=== PATIENT | male | born 1970 | race African-American/Black ===

== ENCOUNTER 2018-11-05 17:39 | Inpatient (IN) | payer OTHER ==
--- OUTSIDE RECORDS SUMMARY | 2018-11-05 17:42 | XMS REPORT | Continuity of Care Document ---
:1970 Author Organization Interface Problems Problem Status Onset Classification Date Comments Source Date Reported ALTERED MENTAL Active [facility]20 [facility] [address] [place] UNSPECIFIED, VOMI VOMITING Active 03/27/20 [facility] [place] Anxiety Resolved Problem 04/01/2017 [facility] Bipolar 1 disorder Resolved Problem 04/01/2017 [facility] Epilepsy Resolved Problem 04/01/2017 [facility] GERD (<span Resolved Problem 04/01/2017 ID="[id number]"> [place] Confirmed</span>) Mental retardation Resolved Problem 04/01/2017 [facility] Schizoaffective Resolved Problem 04/01/2017 disorder [place] Seizures Resolved Problem 04/01/2017 [facility] Thyroiditis Resolved Problem 04/01/2017 [facility] ALTERED MENTAL Active [facility], [place] UNSPECIFIED VOMITING, Active [facility] UNSPECIFIED [place] Medications Medication Details Route Status Patient Ordering Order Source Instructions Provider Date Famotidine 10 MG 10 mg, 0.5 No Longer Oral Tablet tab, Route: Active 2016 [place] PO, Drug form: TAB, Daily, Dosing Weight 81.864, kg, Start date: 03/30/17 9:00:00 CDT, Duration: 30 day, Stop date: 04/28/17 9:00:00 CDTNotes: (Same as: Pepcid) Thyroxine 75 microgram, No Longer 1 tab, Route: Active 2016 [place] PO, Drug form: TAB, Before Breakfast, Dosing Weight 81.864, kg, Start date: 03/30/17 7:30:00 CDT, Duration: 30 day, Stop date: 04/28/17 7:30:00 CDTNotes: Take 1 hour before or 2 hours after meal; Enteral feeds may interefere with the absorption of this medication. (Same as:Synthroid, Levothroid) Divalproex Sodium 1,000 mg, 2 Inactive 250 MG Enteric tab, Route: 2017 [place] Coated Tablet PO, Drug form: [Depakote] ECTAB, Bedtime, Dosing Weight 81.864, kg, Start date: 03/29/17 21:00:00 CDT, Duration: 30 day, Stop date: 04/27/17 21:00:00 CDTNotes: (Same as: Depakote Delayed Release) Do not confuse with the extended-relea se tablet. Delayed absorption enteric coated tablet. Do not crush Clonazepam 4 mg, 4 tab, Inactive Route: PO, 2016 [place] Drug form: TAB, Bedtime, Dosing Weight 81.864, kg, Start date: 03/29/17 21:00:00 CDT, Duration: 30 day, Stop date: 04/27/17 21:00:00 CDTNotes: (Same As: KlonoPIN) gabapentin 100 MG 200 mg, 2 cap, Inactive Oral Capsule Route: PO, 2016 [place] Drug form: CAP, Bedtime, Dosing Weight 81.864, kg, Start date: 03/29/17 21:00:00 CDT, Duration: 30 day, Stop date: 04/27/17 21:00:00 CDTNotes: (Same as: Neurontin) Divalproex Sodium 750 mg, 3 tab, Inactive 250 MG Enteric Route: PO, 2016 [place] Coated Tablet Drug form: [Depakote] ECTAB, BID, Dosing Weight 81.864, kg, Start date: 03/29/17 17:00:00 CDT, Duration: 30 day, Stop date: 04/28/17 9:00:00 CDTNotes: (Same as: Depakote Delayed Release) Do not confuse with the extended-relea se tablet. Delayed absorption, enteric coated tablet. Do not crush Magnesium Oxide 400 mg, 1 tab, Inactive Route: PO, 2016 [place] Drug form: TAB, BID, Dosing Weight 81.864, kg, Start date: 03/29/17 17:00:00 CDT, Duration: 30 day, Stop date: 04/28/17 9:00:00 CDTNotes: (Same as: Mag-Ox 400) Magnesium oxide [id number] elemental magnesium Dose=____mg magnesium oxide (___mg elemental magnesium) Clonazepam 2 mg, 2 tab, Inactive Route: PO2016 [place] Drug form: TAB, TID, Dosing Weight 81.864, kg, Start date: 03/29/17 13:00:00 CDT, Duration: 30 day, Stop date: 04/28/17 9:00:00 CDTNotes: (Same As: KlonoPIN) Metronidazole 500 500 mg=1 tab, Active MG Oral Tablet PO, Q8H, X 5 2016 day, # 15 tab, 0 Refill(s) clonazePAM 2 mg 4 mg, PO, Active oral tablet Bedtime, 0 2016 [place] Refill(s) Ciprofloxacin 500 500 mg=1 tab, Active MG Oral Tablet PO, Q12H, X 5 2016 [place] [Cipro] , # 10 tab, 0 Refill(s) Bisacodyl 5 mg, 1 tab, Inactive Route: PO, 2016 [place] Drug form: ECTAB, Daily, Dosing Weight 81.864, kg, PRN Constipation, Start date: 03/29/17 10:47:00 CDT, Duration: 30 day, Stop date: 04/28/17 10:46:00 CDTNotes: (Same As: Dulcolax, Correctol) (Do Not Crush) "Do Not Crush" potassium chloride 40 mEq, 2 tab, Inactive Route: PO2016 [place] Drug form: ERTAB, ONCE, Dosing Weight 81.864, kg, Start date: 03/29/17 7:52:00 CDT, Stop date: 03/29/17 7:52:00 CDTNotes: (Same as: K-Dur 20) "Do Not Crush" With food and full glass of water zolpidem 5 mg, 1 tab, No Longer Route: PO, Active 2016 [place] Drug form: TAB, Bedtime, PRN Sleep, Start date: 03/28/17 21:23:00 CDT, Duration: 30 day, Stop date: 04/27/17 21:22:00 CDTNotes: (Same As: Ambien) gabapentin 100 MG 200 mg, 2 cap, No Longer Oral Capsule Route: PO, Active 2016 [place] Drug form: CAP, Bedtime, Dosing Weight 96.364, kg, Start date: 03/28/17 21:00:00 CDT, Duration: 30 day, Stop date: 04/26/17 21:00:00 CDTNotes: (Same as: Neurontin) Geodon 10 mg, Route: No Longer IM, Drug form: Active 2016 [place] PDR/INJ, Q2H, Dosing Weight 81.864, kg, PRN Agitation, Start date: 03/28/17 19:08:00 CDT, Duration: 30 day, Stop date: 04/27/17 19:07:00 CDTNotes: Reconstitute with 1.2 ml of sterile water. Final concentration= 20 mg/1ml. Maximum 40 mg/24 hours (Same As: Geodon). MEDICATION WASTE Product Size: 20 mg Product Wasted: ___ mg Loperamide 2 mg, 1 cap, No Longer Route: PO, Active 2016 [place] Drug form: CAP, Q6H, Dosing Weight 81.864, kg, PRN Diarrhea, Start date: 03/28/17 17:56:00 CDT, Duration: 30 day, Stop date: 04/27/17 17:55:00 CDTNotes: (Same as: Imodium) MAX adult dose is 8 caps/day Benadryl 25 mg, 0.5 mL, Inactive Route: IVP, 2016 [place] Drug form: INJ, ONCE, Dosing Weight 81.864, kg, PRN Allergic reaction, Start date: 03/28/17 17:50:00 CDTNotes: (Same as: Benadryl) Protonix 40 mg, 1 tab, No Longer Route: PO, Active 2016 [place] Drug form: ECTAB, BID, Dosing Weight 81.864, kg, Start date: 03/28/17 17:00:00 CDT, Stop date: 04/27/17 9:00:00 CDTNotes: Tablet should not be chewed or crushed. (Same as: Protonix) Morphine 3 mg, 0.75 mL, Inactive Route: IV, 2016 [place] Drug form: INJ, ONCE, Dosing Weight 81.864, kg, Start date: 03/28/17 13:43:00 CDT, Stop date: 03/28/17 13:43:00 CDTNotes: (Same as:MORPhine Sulfate) Dextromethorphan 1 cap, PO, Active Hydrobromide 20 MG Daily, 0 2016 [place] / Quinidine Refill(s) Sulfate 10 MG Oral Capsule [Nuedexta] Cerovite Advanced 1 tab, PO, Active Formula oral BID, # 30 tab, 2017 [place] tablet 0 Refill(s) gabapentin 100 MG 200 mg=2 cap, Active Oral Capsule PO, Bedtime, # 2017 [place] 720 cap, 0 Refill(s) clonazePAM 2 mg 4 mg=2 tab, No Longer oral tablet PO, Bedtime, # Active 2017 [place] 30 tab, 0 Refill(s) Niacinamide 500 mg 500 mg=1 tab, Active oral tablet PO, Daily, # 2017 [place] 30 tab, 0 Refill(s) Divalproex Sodium 1,000 mg=4 Active 250 MG Enteric tab, PO, 2017 [place] Coated Tablet Bedtime, # 90 [Depakote] tab, 0 Refill(s) Famotidine 10 MG 10 mg=1 tab, Active Oral Tablet PO, Daily, # 2017 [place] 180 tab, 0 Refill(s) zolpidem 10 mg 10 mg=1 tab, Active oral tablet PO, Bedtime, # 2017 [place] 30 tab, 0 Refill(s) magnesium oxide 400 mg=1 tab, Active 400 mg oral tablet PO, BID, # 30 2016 [place] tab, 1 Refill(s) Haldol 5 mg, 1 mL, Inactive Route: IM, 2016 [place] Drug form: INJ, Q4H, Dosing Weight 81.864, kg, PRN Agitation, Start date: 03/28/17 9:24:00 CDT, Duration: 30 day, Stop date: 04/27/17 9:23:00 CDTNotes: (Same as: Haldol) lactobacillus 1 tab, Route: No Longer acidophilus and CHEW, Drug Active 2016 [place] bulgaricus Form: TAB, Dosing Weight 96.364, kg, TID, Start date: 03/28/17 9:00:00 CDT, Duration: 30 day, Stop date: 04/26/17 17:00:00 CDTNotes: (Same as Floranex) Do NOT refrigerate Thioridazine 100 mg, 4 tab, No Longer Route: PO, Active 2016 [place] Drug form: TAB, BID, Dosing Weight 96.364, kg, Start date: 03/28/17 9:00:00 CDT, Duration: 30 day, Stop date: 04/26/17 17:00:00 CDTNotes: (Same As: Mellaril) Clonazepam 2 mg, 2 tab, No Longer Route: PO, Active 2016 [place] Drug form: TAB, TID, Dosing Weight 96.364, kg, Start date: 03/28/17 9:00:00 CDT, Duration: 30 day, Stop date: 04/26/17 17:00:00 CDTNotes: (Same As: KlonoPIN) Thyroxine 75 microgram, No Longer 1 tab, Route: Active 2016 [place] PO, Drug form: TAB, Q630AM, Dosing Weight 96.364, kg, Start date: 03/28/17 6:30:00 CDT, Duration: 30 day, Stop date: 04/26/17 6:30:00 CDTNotes: Take 1 hour before or 2 hours after meal; Enteral feeds may interefere with the absorption of this medication. (Same as:Synthroid, Levothroid) Ativan 1 mg, 0.5 mL, No Longer Route: IVP, Active 2016 [place] Drug form: INJ, Q6H, Dosing Weight 81.864, kg, PRN Anxiety, Start date: 03/28/17 4:55:00 CDT, Duration: 30 day, Stop date: 04/27/17 4:54:00 CDTNotes: (Same as: Ativan) Ceftriaxone 1 gm, Route: No Longer IVPB, OAGQ55L, Active 2016 [place] Dosing Weight 96.364, kg, Start date: 03/28/17 4:00:00 CDT, Duration: 5 day, Stop date: 04/01/17 4:00:00 CDT, ABX Indication: Infectious DiarrheaNotes: (Same As: Rocephin). Use with 100 mL NS and infuse over 30 min MEDICATION WASTE Product Size: 1000 mg Product Wasted: ___ mg Flagyl 500 mg, 1 tab, No Longer Route: PO, Active 2016 [place] Drug form: TAB, ABXQ6H, Dosing Weight 96.364, kg, Start date: 03/28/17 4:00:00 CDT, Stop date: 04/04/17 2:00:00 CDT, ABX Indication: Infectious DiarrheaNotes: (Same as: Flagyl) Take with food/ avoid alcohol Ambien 10 mg, 1 tab, Inactive Route: PO, 2016 [place] Drug form: TAB, Bedtime, Dosing Weight 96.364, kg, PRN Insomnia, Start date: 03/28/17 3:17:00 CDT, Duration: 30 day, Stop date: 04/27/17 3:16:00 CDT, insominaNotes: (Same As: Ambien) Divalproex Sodium 500 mg, 1 tab, No Longer 500 MG Enteric Route: PO, Active 2016 [place] Coated Tablet Drug form: [Depakote] ECTAB, QPM, Dosing Weight 96.364, kg, Start date: 03/28/17 3:07:00 CDT, Duration: 30 day, Stop date: 04/26/17 17:00:00 CDT, Delayed Release tabletNotes: (Same as: Depakote Delayed Release) Do not confuse with the extended-relea se tablet. Delayed absorption enteric coated tablet. Do not crush Saline Flush 0.9% 10 ml, Route: No Longer IVP, Drug Active 2016 [place] Form: INJ, Dosing Weight 96.364, kg, PRN, PRN Line Flush, Start date: 03/28/17 3:07:00 CDT, Duration: 30 day, Stop date: 04/27/17 3:06:00 CDTNotes: (Same as: BD Posiflush) Sodium Chloride 1,000 mL, No Longer 0.154 MEQ/ML Rate: 125 Active 2016 [place] Injectable ml/hr, Infuse Solution over: 8 hr, Route: IV, Dosing Weight 96.364 kg, Total Volume: 1,000, Start date: 03/28/17 3:07:00 CDT, Duration: 30 day, Stop date: 04/27/17 3:06:00 CDT Promethazine 12.5 mg, 0.5 Inactive tab, Route: 2016 [place] PO, Drug form: TAB, Q6H, Dosing Weight 96.364, kg, PRN Nausea & Vomiting, Start date: 03/28/17 3:07:00 CDT, Duration: 30 day, Stop date: 04/27/17 3:06:00 CDTNotes: (Same as: Phenergan) pantoprazole 40 mg, Route: Inactive IVP, Drug 2016 [place] form: INJ, ONCE, Dosing Weight 96.364, kg, Start date: 03/28/17 3:07:00 CDT, Stop date: 03/28/17 3:07:00 CDTNotes: For IV push reconstitute with 10 ml 0.9% sodium chloride and push over 2 minutes. (Same as: Protonix) Ondansetron 4 mg, 2 mL, Inactive Route: IVP, 2016 [place] Drug form: INJ, Q8H, Dosing Weight 96.364, kg, PRN Nausea & Vomiting, Start date: 03/28/17 3:07:00 CDT, Duration: 30 day, Stop date: 04/27/17 3:06:00 CDTNotes: (Same as: Zofran) MEDICATION WASTE Product Size: 4 mg Product Wasted: ___ mg Haldol 2.5 mg, Route: Inactive IM, ONCE, 2016 [place] Dosing Weight 96.364, kg, Start date: 03/28/17 2:42:00 CDT, Stop date: 03/28/17 2:42:00 CDT Haldol 2.5 mg, 0.5 Inactive mL, Route: IM, 2016 [place] Drug form: INJ, ONCE, Dosing Weight 96.364, kg, PRN Anxiety, Start date: 03/28/17 2:36:00 CDTNotes: (Same as: Haldol) Haldol 2.5 mg, Route: Inactive IM, ONCE, 2016 [place] Dosing Weight 96.364, kg, Priority: STAT, Start date: 03/28/17 0:59:00 CDT, Stop date: 03/28/17 0:59:00 CDT Fentanyl 50 microgram, Inactive 1 mL, Route: 2016 [place] IVP, Drug form: INJ, ONCE, Dosing Weight 96.364, kg, Priority: STAT, Start date: 03/27/17 19:06:00 CDT, Stop date: 03/27/17 19:06:00 CDTNotes: (Same as: Sublimaze) Preservative free. Benadryl 25 mg, 0.5 mL, Inactive Route: IVP, 2016 [place] Drug form: INJ, ONCE, Dosing Weight 96.364, kg, Priority: STAT, Start date: 03/27/17 17:43:00 CDT, Stop date: 03/27/17 17:43:00 CDTNotes: (Same as: Benadryl) Ativan 1 mg, Route: Inactive IVP, Drug 2016 [place] form: INJ, ONCE, Dosing Weight 96.364, kg, Priority: STAT, Start date: 03/27/17 17:26:00 CDT, Stop date: 03/27/17 17:26:00 CDT D5NS 1,000 mL 1,000 mL, Inactive Rate: [address] [place] [address] ml/hr, Infuse over: 10 hr, Route: IV, Dosing Weight 96.364 kg, Total Volume: 1,000, Start date: 03/27/17 17:11:00 CDT, Duration: 30 day, Stop date: 04/26/17 17:10:00 CDT Ativan 1 mg, 0.5 mL, Inactive Route: IM, 2016 [place] Drug form: INJ, ONCE, Dosing Weight 96.364, kg, Priority: STAT, Start date: 03/27/17 17:10:00 CDT, Stop date: 03/27/17 17:10:00 CDTNotes: (Same as: Ativan) Haldol 2.5 mg, 0.5 Inactive 03/27/ MH mL, Route: IM, 2016 [place] Drug form: INJ, ONCE, Dosing Weight 96.364, kg, Priority: STAT, Start date: 03/27/17 16:41:00 CDT, Stop date: 03/27/17 16:41:00 CDTNotes: (Same as: Haldol) Sodium Chloride 500 mL, 1,000 Inactive 03/27/ MH 0.154 MEQ/ML ml/hr, Infuse 2016 [place] Injectable Over: 0.5 hr, Solution Route: IV, 500, Drug form: INJ, ONCE, Priority: STAT, Dosing Weight 96.364 kg, Start date: 03/27/17 16:27:00 CDT, Duration: 1 doses or times, Stop date: 03/27/17 16:27:00 CDT Haloperidol 2.5 mg, 0.5 Inactive 03/27/ MH mL, Route: IM, 2016 [place] Drug form: INJ, ONCE, Dosing Weight 96.364, kg, Priority: STAT, Start date: 03/27/17 16:24:00 CDT, Stop date: 03/27/17 16:24:00 CDTNotes: (Same as: Haldol) Allergies, Adverse Reactions, Alerts Substance Category Reaction Severity Reaction Status Date Comments Source type Reported tetanus Assertion Drug Active toxoid allergy [place] Immunizations Immunization Date Given Site Status Last Updated Comments Source Results Order Name Results Value Reference Date Interpretation Comments Source Range CARDIAC Total CK 1263 12 - 191 03/29 ENZYMES unit/L /2016 [place] CHEM PANEL eGFR 114 03/29 Result Comment: The eGFR is calculated using the CKD-EPI formula. In most young, healthy individuals the eGFR will be >90 mL/ min/1.73m2. The eGFR declines with age. An eGFR of 60-89 may be normal in MH mL/min/1.7 /2017 some populations, particularly the elderly, for whom the CKD-EPI formula has not been extensively validated. Use of the eGFR is not recommended in the following populations: [address] Individuals with unstable creatinine concentrations, including patients and those with serious co-morbid conditions. Patients with extremes in muscle mass or diet. The data above are obtained from the National Kidney Disease Education Program (NKDEP) which additionally recommends that when the eGFR is used in patients with extremes of body mass index for purposes of drug dosing, the eGFR should be multiplied by the estimated BMI. CHEM PANEL CO2 21 meq/L 24 - 32 03/29 [place] CHEM PANEL Chloride Lvl 116 meq/L 95 - 109 03/29 [place] CHEM PANEL Calcium Lvl 7.4 mg/dL 8.5 - 10.5 03/29 [place] CHEM PANEL Glucose Lvl 79 mg/dL 70 - 99 03/29 [place] CHEM PANEL Potassium 3.4 meq/L 3.5 - 5.1 03/29 Lvl [place] CHEM PANEL BUN 18 mg/dL 7 - 22 03/29 [place] CHEM PANEL AGAP 14.4 meq/L 10.0 - 03/29 20.0 [place] CHEM PANEL Creatinine 0.92 mg/dL 0.50 - 03/29 Lvl 1.40 [place] CHEM PANEL Sodium Lvl 148 meq/L 135 - 145 03/29 [place] MOLECULAR C difficile Negative Negative 03/28 DIAGNOSTIC DNA [place] (03/28/17 2:48 AM) Chest 1view Chest 1view Patient Name: GEORGINA CRANE 03/28 [facility] DX DX [facility] : 1970; Age: 46 years y/o Male MR: [id number] Read by: Van Dias MD Dictated Date/time: 03/28/17 07:10 Electronically Signed by: Van Dias MD 03/28/17 07:11 FINAL REPORT Study: Chest 1view DX 03/28/2017 12:37 AM CDT Ordering Physician: Clinical Indication: - vomiting; Comparison: None 1 view chest Lungs are clear. Cardiomediastinal silhouette normal. Pulmonary vasculature normal. No pleural acute osseous abnormalities. No pneumoperitoneum seen beneath the diaphragm. IMPRESSION: No acute finding. SL: [id number] METAL [place] Lvl null 0.50 - 03/28 MH 1.50 [place] CHEM PANEL Lactic Acid 1.7 mMol/L 0.5 - 2.2 03/27 Lvl [place] URINE AND UA Glucose Negative Negative 03/27 STOOL mg/dL mg/dL [place] URINE AND UA pH 5.5 5.0 - 8.0 03/27 STOOL [place] URINE AND UA Protein Negative Negative 03/27 STOOL mg/dL mg/dL [place] URINE AND UA Ketones Negative Negative 03/27 STOOL mg/dL mg/dL [place] URINE AND UA Leuk Est Negative Negative 03/27 STOOL [place] (03/27/17 6:16 PM) URINE AND UA Nitrite Negative Negative 03/27 STOOL [place] (03/27/17 6:16 PM) URINE AND UA 0.2 EU/dL 0.1 - 1.0 03/27 STOOL Urobilinogen [place] URINE AND UA Bili Negative Negative 03/27 STOOL [place] *NA* (03/27/17 6:16 PM) URINE AND UA Blood Negative Negative 03/27 STOOL [place] (03/27/17 6:16 PM) URINE AND UA Turbidity Clear Clear 03/27 STOOL [place] (03/27/17 6:16 PM) URINE AND UA Spec Grav 1.020 <=1.030 03/27 [place] URINE AND UA Color Yellow Yellow 03/27 [place] *NA* (03/27/17 6:16 PM) URINE AND UA Sq Epi Rare /LPF Few /LPF 03/27 [place] URINE AND UA WBC 0-2 /HPF None Seen 03/27 STOOL /HPF [place] URINE AND UA RBC 0-2 /HPF 0 - 2 03/27 [place] URINE AND UA Bacteria None Seen None Seen 03/27 [place] (03/27/17 6:16 PM) CHEM PANEL Lipase Lvl 393 unit/L 73 - 393 03/27 [place] CHEM PANEL eGFR 52 03/27 Result Comment: The eGFR is calculated using the CKD-EPI formula. In most young, healthy individuals the eGFR will be >90 mL/ min/1.73m2. The eGFR declines with age. An eGFR of 60-89 may be normal in mL/min/1. some populations, particularly the elderly, for whom the CKD-EPI formula has not been extensively validated. Use of the eGFR is not recommended in the following populations: [place] 3m2 Individuals with unstable creatinine concentrations, including patients and those with serious co-morbid conditions. Patients with extremes in muscle mass or diet. The data above are obtained from the National Kidney Disease Education Program (NKDEP) which additionally recommends that when the eGFR is used in patients with extremes of body mass index for purposes of drug dosing, the eGFR should be multiplied by the estimated BMI. CHEM PANEL Total 7.2 g/dL 6.4 - 8.4 05/ MH Protein [place] CHEM PANEL Bili Total 0.3 mg/dL 0.2 - 1.3 03/27 [place] CHEM PANEL Calcium Lvl 8.8 mg/dL 8.5 - 10.5 03/27 [place] CHEM PANEL ASPARTATE 22 unit/L 0 - 37 / MH TRANSAMINASE [place] CHEM PANEL Glucose Lvl 96 mg/dL 70 - 99 03/27 [place] CHEM PANEL CO2 27 meq/L 24 - 32 03/27 [place] CHEM PANEL Chloride Lvl 107 meq/L 95 - 109 03/27 [place] CHEM PANEL BUN 34 mg/dL 7 - 22 03/27 [place] CHEM PANEL Potassium 4.6 meq/L 3.5 - 5.1 / MH Lvl /2016 [place] CHEM PANEL Sodium Lvl 143 meq/L 135 - 145 03/27 [place] CHEM PANEL Albumin Lvl 3.2 g/dL 3.5 - 5.0 03/27 [place] CHEM PANEL Creatinine 1.76 mg/dL 0.50 - 05/ MH Lvl 1.40 [place] CHEM PANEL Alk Phos 49 unit/L 39 - 136 03/27 [place] CHEM PANEL ALANINE 23 unit/L 0 - 65 / MH AMINOTRANS [place] RASE CHEM PANEL B/C Ratio 19 6 - 25 03/27 [place] CHEM PANEL A/G Ratio 0.8 0.7 - 1.6 03/27 [place] CHEM PANEL Globulin 4.0 g/dL 2.7 - 4.2 03/27 [place] CHEM PANEL AGAP 13.6 meq/L 10.0 - 05/ MH 20.0 [place] HEMATOLOGY MPV 9.3 fL 7.4 - 10.4 03/27 [place] HEMATOLOGY Platelet 184 K/CMM 133 - 450 05/24 MH /2016 [place] HEMATOLOGY MCH 30.7 pg 27.0 - 03/27 MH 31.0 [place] HEMATOLOGY Hgb 12.3 g/dL 14.0 - 03/27 MH 18.0 [place] HEMATOLOGY MCV 92.6 fL 80.0 - 03/27 MH 94.0 [place] HEMATOLOGY MCHC 33.1 g/dL 32.0 - 03/27 MH 36.0 [place] HEMATOLOGY WBC X 10x3 9.0 K/CMM 3.7 - 10.4 03/27 MH /2016 [place] HEMATOLOGY RBC X 10x6 4.00 M/CMM 4.70 - 03/27 MH 6.10 [place] HEMATOLOGY Hct 37.0 % 42.0 - 03/27 MH 54.0 [place] HEMATOLOGY RDW 14.1 % 11.5 - 03/27 MH 14. [place] HEMATOLOGY Segs 75.4 % 45.0 - 03/27 MH 75.0 [place] HEMATOLOGY Lymphocytes 11.3 % 20.0 - 03/27 MH 40.0 [place] HEMATOLOGY Monocytes 12.4 % 2.0 - 12.0 03/27 [place] HEMATOLOGY Eosinophils 0.8 % 0.0 - 4.0 03/27 [place] HEMATOLOGY Monocytes # 1.1 K/CMM 0.0 - 0.8 03/27 [place] HEMATOLOGY Lymphocytes 1.0 K/CMM 1.0 - 5.5 03/27 MH # [place] HEMATOLOGY Basophils 0.1 % 0.0 - 1.0 03/27 [place] HEMATOLOGY Segs-Bands # 6.8 K/CMM 1.5 - 8.1 03/27 [place] HEMATOLOGY Eosinophils 0.1 K/CMM 0.0 - 0.5 24 MH # /2016 [place] CARDIAC Total CK 527 unit/L 12 - 191 03/27 MH ENZYMES /2016 [place] CARDIAC Troponin-I null 0.00 - 03/27 MH ENZYMES 0.40 [place] CARDIAC CK-MB INDEX 0.2 0.0 - 2.5 03/27 MH ENZYMES /2016 [place] CARDIAC CK MB 0.8 ng/mL 0.5 - 3.6 / ENZYMES /2016 [place] CHEM PANEL Lactic Acid 2.3 mMol/L 0.5 - 2.2 03/27 MH Lvl [place] TOXICOLOGY Valproic 89 ug/ml 50 - 100 03/27 Acid Lvl [place] Renal Stone Renal Stone Clinical Indication: - Vomiting, acute kidney injury 03/27 - [facility] CT CT Comparison: None Read by: Rey Shay MD Dictated Date/time: 03/27/17 20:52 Electronically Signed by: Rey Shay MD 03/27/17 20:55 FINAL REPORT TECHNIQUE: Noncontrasted helical imaging was performed from the kidneys through the symphysis as a renal stone protocol. Axial and coronal reformations are available. CT Radiation Dose DLP: 922 mGy-cm FINDINGS: This examination is limited for the evaluation of solid organs and vascular structures due to lack of intravenous contrast, which is standard for urinary calculus assessment CT. KIDNEYS: No urinary calculi, hydronephrosis or perinephric stranding. The renal contours are normal. A 4.7 cm cystic appearing lesion of the right kidney. A 0.5 cm faintly hyperdense lesion in the lower pole of the left kidney. LOWER CHEST: The lung bases are clear. SOLID ORGANS: The visualized liver, spleen, pancreas, and adrenal glands are normal. BOWEL: No acute bowel pathology. Appendix not seen. Small amount of surgical material in the right lower quadrant which may be related to a prior appendectomy. PERITONEUM: No free intraperitoneal fluid or air. RETROPERITONEUM: No adenopathy. Aorta is normal. PELVIS: No pelvic mass. Rajan catheter in the bladder which is decompressed. MUSCULOSKELETAL: No acute osseous abnormalities. Hernia repair mesh bilaterally in the inguinal regions. IMPRESSION: No acute abnormalities of the abdomen or pelvis. No renal or ureteral calculi and no hydronephrosis. A 4.7 cm cystic appearing lesion of the right kidney. A 0.5 cm faintly hyperdense lesion in the lower pole of the left kidney, possibly cortical calcification or a hemorrhagic or hyperdense cyst. SL: [id number] Brain wo Brain wo CT BRAIN WITHOUT CONTRAST 03/27 - [facility] contrast CT contrast CT [place] INDICATION: Altered mental status, - Vomiting, strabismus ctdlp:[id number] Read by: Bryson Allan MD Dictated Date/time: 03/27/17 20:26 Electronically Signed by: Bryson Allan MD 03/27/17 20:28 FINAL REPORT COMPARISON: None DISCUSSION: Image detail is degraded by motion artifacts. Grossly, there is no evidence of acute vascular insults, space occupying lesions, hemorrhage, hydrocephalus, midline shift, or extra-axial fluid collections. The calvarium is intact. IMPRESSION: No acute intracranial abnormalities are visualized. SL:16 Vital Signs Vital Sign Value Date Comments Source Systolic (mm Hg) 145 03/29/2017 [facility] Diastolic (mm Hg) 76 03/29/2017 [facility] Heart Rate 92 03/29/2017 [facility] Respitory Rate 22 03/29/2017 [facility] Systolic (mm Hg) 116 03/29/2017 [facility] Diastolic (mm Hg) 76 03/29/2017 [facility] Heart Rate 85 03/29/2017 [facility] Respitory Rate 20 03/29/2017 [facility] Heart Rate 87 03/29/2017 [facility] Respitory Rate 20 03/29/2017 [facility] Systolic (mm Hg) 107 03/29/2017 [facility] Diastolic (mm Hg) 65 03/29/2017 [facility] BMI Calculated 27.44 03/28/2017 [facility] Weight 81.864 03/28/2017 [facility] Height 172.72 cm 03/28/2017 [facility] Temperature Oral (F) 98.0 F 03/27/2017 [facility] Temperature Oral (F) 97.8 F 03/27/2017 [facility] Weight 96.364 03/27/2017 [facility] Height 170.18 cm 03/27/2017 [facility] BMI Calculated 33.27 03/27/2017 [facility] Encounters Location Location Encounter Encounter Reason Attending ADM DC Status Source Details Type Number For Provider Date Date Visit [facility] [id number] 03/27 [facility]2016 [facility] Procedures Procedure Code Date Perfomer Comments Source
--- OUTSIDE RECORDS SUMMARY | 2018-11-05 17:43 | XMS REPORT ---
:1970 [facility] [place] [address] Care Team Providers Name Role Phone Unavailable Unavailable Unavailable Problems This patient has no known problems. Allergies, Adverse Reactions, Alerts This patient has no known allergies or adverse reactions. Medications This patient has no known medications.
[2018-11-05 18:20] LABS: Absolute Lymphocytes (CBC) 0.9 K/uL (0.7-4.9); Absolute Monocytes 0.9 K/uL (0.1-1.3); Absolute Neutrophil 6.3 K/uL (1.8-8.0); Basophils % 0.3 % (0-1.3); Eosinophils % 0.2 % (0-4.4); Hematocrit 37.6 % (39.6-49.0); Lymphocytes % 10.9 % (15.3-44.8); MPV 10.2 fL (7.6-11.3); Monocytes % 10.6 % (3.3-12.3)
[2018-11-05 18:22] LABS: Protime INR 1.53
[2018-11-05] MEDS ORDERED: NA CHLORIDE 0.9% 1,000 ML ONE (18:24)
[2018-11-05] MEDS ORDERED: LACTULOSE 20 GM/30 ML UCUP ONE (18:24)
--- NOTE | 2018-11-05 18:38 | RAD REPORT ---
EXAM DESCRIPTION: RAD - Chest Single View - 11/05/2018 6:32 pm CLINICAL HISTORY: COUGH Chest pain. COMPARISON: No comparisons FINDINGS: Portable technique limits examination quality. Mild bilateral pulmonary opacities are noted which may represent pulmonary edema or pneumonia. The he art is normal in size. No displaced fractures.
--- NOTE | 2018-11-05 18:44 | EDPHYS ---
Physician Documentation [facility] Name: Oscar Kaufman Age: 47 yrs Sex: Male : 1970 Arrival Date: 11/05/2018 Time: 17:41 Bed 18 Private MD: ED Physician Pedro Matos HPI: 11/05 18:36 This 47 yrs old Black Male presents to ER via EMS with complaints of Abnormal Lab eloina Results. 18:36 lethargic , lately. The patient presents with possible. Onset: The symptoms/episode eloina began/occurred 2 day(s) ago. Possible causes: unknown. Associated signs and symptoms: The patient has no apparent associated signs or symptoms. Current symptoms: In the emergency department the patient's symptoms are unchanged from the initial presentation. Patient's baseline: Neuro:. Historical: - Allergies: 17:47 No Known Allergies; ss - PMHx: 17:47 Pneumonia; schizoaffective disorder, bipolar type; dysphagia; epilepsy; PE; severe ss intellectual disabilites; chronic rhinits; GERD; thyroiditis; hepatomegaly; insomnia; constipation; age-related cognitive decline; - Immunization history:: Adult Immunizations unknown. - Social history:: Smoking status: unknown. - Ebola Screening: : Patient denies exposure to infectious person Patient denies travel to an Ebola-affected area in the 21 days before illness onset. - Family history:: not pertinent. ROS: 18:36 Constitutional: Negative for fever, chills, and weight loss, Eyes: Negative for injury, eloina pain, redness, and discharge, ENT: Negative for injury, pain, and discharge, Neck: Negative for injury, pain, and swelling, Cardiovascular: Negative for chest pain, palpitations, and edema, Respiratory: Negative for shortness of breath, cough, wheezing, and pleuritic chest pain, Abdomen/GI: Negative for abdominal pain, nausea, vomiting, diarrhea, and constipation, Back: Negative for injury and pain, : Negative for injury, bleeding, discharge, and swelling, MS/Extremity: Negative for injury and deformity, Skin: Negative for injury, rash, and discoloration, Psych: Negative for depression, anxiety, suicide ideation, homicidal ideation, and hallucinations, Allergy/Immunology: Negative for hives, rash, and allergies, Endocrine: Negative for neck swelling, polydipsia, polyuria, polyphagia, and marked weight changes, Hematologic/Lymphatic: Negative for swollen nodes, abnormal bleeding, and unusual bruising. 18:36 Neuro: Positive for altered mental status, weakness. Exam: 18:36 Constitutional: This is a well developed, well nourished patient who is awake, alert, eloina and in no acute distress. Head/Face: Normocephalic, atraumatic. Eyes: Pupils equal round and reactive to light, extra-ocular motions intact. Lids and lashes normal. Conjunctiva and sclera are non-icteric and not injected. Cornea within normal limits. Periorbital areas with no swelling, redness, or edema. ENT: Nares patent. No nasal discharge, no septal abnormalities noted. Tympanic membranes are normal and external auditory canals are clear. Oropharynx with no redness, swelling, or masses, exudates, or evidence of obstruction, uvula midline. Mucous membranes moist. Neck: Trachea midline, no thyromegaly or masses palpated, and no cervical lymphadenopathy. Supple, full range of motion without nuchal rigidity, or vertebral point tenderness. No Meningismus. Chest/axilla: Normal chest wall appearance and motion. Nontender with no deformity. No lesions are appreciated. Cardiovascular: Regular rate and rhythm with a normal S1 and S2. No gallops, murmurs, or rubs. Normal PMI, no JVD. No pulse deficits. Respiratory: Lungs have equal breath sounds bilaterally, clear to auscultation and percussion. No rales, rhonchi or wheezes noted. No increased work of breathing, no retractions or nasal flaring. Abdomen/GI: Soft, non-tender, with normal bowel sounds. No distension or tympany. No guarding or rebound. No evidence of tenderness throughout. Back: No spinal tenderness. No costovertebral tenderness. Full range of motion. Male : Normal genitalia with no discharge or lesions. Skin: Warm, dry with normal turgor. Normal color with no rashes, no lesions, and no evidence of cellulitis. MS/ Extremity: Pulses equal, no cyanosis. Neurovascular intact. Full, normal range of motion. Psych: Awake, alert, with orientation to person, place and time. Behavior, mood, and affect are within normal limits. 18:36 Neuro: Orientation: unable to test, Mentation: no acute changes, Memory: unable to test, Cerebellar function: unable to test, Motor: moves all fours, Gait: not tested. seizure activity, is not displayed by the patient. Vital Signs: 17:47 BP 98 / 57; Pulse 73; Resp 21; Temp 98.2(TE); Pulse Ox 97% on R/A; ss 18:43 BP 95 / 61; Pulse 80; Resp 15; Pulse Ox 99% ; sv 19:38 BP 107 / 70; Pulse 78; Resp 15; Pulse Ox 98% on R/A; tl2 21:02 BP 114 / 91; Pulse 86; Resp 16; Pulse Ox 100% on Nebulizer Mask; tl2 MDM: 17:59 Patient medically screened. [facility] 18:36 Data reviewed: vital signs, nurses notes, lab test result(s), EKG, radiologic studies, [facility] CT scan, plain films. 11/05 18:02 Order name: Basic Metabolic Panel; Complete Time: 19:53 [facility] 11/05 18:02 Order name: CBC with Diff; Complete Time: 18:32 [facility] 11/05 18:02 Order name: LFT's; Complete Time: 19:53 [facility] 11/05 18:02 Order name: Magnesium; Complete Time: 19:53 [facility] 11/05 18:02 Order name: NT PRO-BNP; Complete Time: 19:53 [facility] 11/05 18:02 Order name: PT-INR; Complete Time: 18:32 [facility] 11/05 18:02 Order name: Troponin (emerg Dept Use Only); Complete Time: 19:53 [facility] 11/05 18:02 Order name: XRAY Chest (1 view); Complete Time: 18:46 [facility] 11/05 18:02 Order name: Depakote; Complete Time: 19:53 [facility] 11/05 18:02 Order name: AMMONIA; Complete Time: 19:44 [facility] 11/05 18:02 Order name: Urine Culture [facility] 11/05 18:43 Order name: Urine Dipstick--Ancillary (enter results) ag 11/05 20:08 Order name: Acetaminophen Level EDOK 11/05 20:14 Order name: Potassium EDMS 11/05 18:02 Order name: EKG; Complete Time: 18:03 [facility] 11/05 18:02 Order name: Cardiac monitoring; Complete Time: 18:13 [facility] 11/05 18:02 Order name: EKG - Nurse/Tech; Complete Time: 18:13 [facility] 11/05 18:02 Order name: IV Saline Lock; Complete Time: 18:13 [facility] 11/05 18:02 Order name: Labs collected and sent; Complete Time: 18:13 [facility] 11/05 18:02 Order name: O2 Per Protocol; Complete Time: 18:13 [facility] 11/05 18:02 Order name: O2 Sat Monitoring; Complete Time: 18:13 [facility] 11/05 18:02 Order name: CT Head Brain wo Cont; Complete Time: 19:25 [facility] 11/05 18:02 Order name: Urine Dipstick-Ancillary (obtain specimen); Complete Time: 19:30 [facility] 11/05 18:56 Order name: Misc. Order: recollect labs; Complete Time: 19:09 11/05 20:09 Order name: US Rp Exam Complete [facility] 11/05 21:09 Order name: EDOK 11/05 19:57 Order name: Rajan; Complete Time: 20:39 [facility] Administered Medications: 18:30 Drug: NS 0.9% 1000 ml Route: IV; Rate: 125 ml/hr; Site: right antecubital; sv 20:01 Not Given (Dr. Noble ordered to cancel- Ammonia level is 25 WNL): Lactulose 30 grams tl2 45 ml PO once 21:00 Drug: Albuterol - atroVENT (3:1) (2.5 mg - 0.5 mg) 3 ml Route: Nebulizer; tl2 21:46 Follow up: Response: No adverse reaction tl2 21:06 Drug: Kayexalate 45 grams Route: PO; tl2 21:46 Follow up: Response: No adverse reaction tl2 Disposition: 11/05/18 18:43 Hospitalization ordered by Marian Duffy for Inpatient Admission. Preliminary diagnosis are Altered mental status, unspecified - mental retardation, Encephalopathy, unspecified, Schizoaffective disorder, unspecified, Bipolar disorder, Unspecified kidney failure - hyperkalemia, Hyperkalemia. - Bed requested for Telemetry/MedSurg (Inpatient). - Status is Inpatient Admission. tl2 - Condition is Fair. - Problem is new. - Symptoms are unchanged. UTI on Admission? No Signatures: Dispatcher [employer] Salma Alfred RN RN sv Webb, Martha, RN RN mw Anderson, Corey, MD MD cha Smirch, Shelby RN RN Rocio Paul RN RN tl2 Corrections: (The following items were deleted from the chart) 19:55 18:43 Hospitalization Ordered by Marian Duffy MD for Observation. Preliminary [facility] diagnosis is Altered mental status, unspecified - mental retardation; Encephalopathy, unspecified; Schizoaffective disorder, unspecified; Bipolar disorder. Bed requested for Telemetry/MedSurg (observation). Status is Observation. Condition is Fair. Problem is new. Symptoms are unchanged. UTI on Admission? No. [facility] 19:58 19:55 11/05/2018 18:43 Hospitalization Ordered by Marian Duffy MD for Observation. [facility] Preliminary diagnosis is Altered mental status, unspecified - mental retardation; Encephalopathy, unspecified; Schizoaffective disorder, unspecified; Bipolar disorder; Unspecified kidney failure - hyperkalemia. Bed requested for Telemetry/MedSurg (observation). Status is Observation. Condition is Fair. Problem is new. Symptoms are unchanged. UTI on Admission? No. [facility] 20:00 19:58 11/05/2018 18:43 Hospitalization Ordered by Marian Duffy MD for Inpatient mw Admission. Preliminary diagnosis is Altered mental status, unspecified - mental retardation; Encephalopathy, unspecified; Schizoaffective disorder, unspecified; Bipolar disorder; Unspecified kidney failure - hyperkalemia; Hyperkalemia. Bed requested for Telemetry/MedSurg (Inpatient). Status is Inpatient Admission. Condition is Fair. Problem is new. Symptoms are unchanged. UTI on Admission? No. eloina 21:46 20:00 11/05/2018 18:43 Hospitalization Ordered by Marian Duffy MD for Inpatient tl2 Admission. Preliminary diagnosis is Altered mental status, unspecified - mental retardation; Encephalopathy, unspecified; Schizoaffective disorder, unspecified; Bipolar disorder; Unspecified kidney failure - hyperkalemia; Hyperkalemia. Bed requested for Telemetry/MedSurg (Inpatient). Status is Inpatient Admission. Condition is Fair. Problem is new. Symptoms are unchanged. UTI on Admission? No. mw
--- NOTE | 2018-11-05 18:44 | ER ---
Nurse's Notes [facility] Name: Oscar Kaufman Age: 47 yrs Sex: Male : 1970 Arrival Date: 11/05/2018 Time: 17:41 Bed 18 Private MD: Diagnosis: Altered mental status, unspecified-mental retardation;Encephalopathy, unspecified;Schizoaffective disorder, unspecified;Bipolar disorder;Unspecified kidney failure-hyperkalemia;Hyperkalemia Presentation: 11/05 17:41 Presenting complaint: EMS states: Sent by [facility] ([facility]) for elevated ss ammonia level. snf reported to EMS that patient is at baseline mental status, however it was noted that he has been becoming more lethargic over the past few days. Transition of care: patient was received from another setting of care (long-term care facility), [facility]. Onset of symptoms is unknown. Risk Assessment: Do you want to hurt yourself or someone else? Unable to obtain. Initial Sepsis Screen:. Care prior to arrival: None. 17:41 Method Of Arrival: EMS: [facility] ss 17:41 Acuity: DAYAN 3 ss 19:38 Initial Sepsis Screen: Does the patient meet any 2 criteria? No. Patient's initial tl2 sepsis screen is negative. Does the patient have a suspected source of infection? No. Patient's initial sepsis screen is negative. Historical: - Allergies: 17:47 No Known Allergies; ss - PMHx: 17:47 Pneumonia; schizoaffective disorder, bipolar type; dysphagia; epilepsy; PE; severe ss intellectual disabilites; chronic rhinits; GERD; thyroiditis; hepatomegaly; insomnia; constipation; age-related cognitive decline; - Immunization history:: Adult Immunizations unknown. - Social history:: Smoking status: unknown. - Ebola Screening: : Patient denies exposure to infectious person Patient denies travel to an Ebola-affected area in the 21 days before illness onset. - Family history:: not pertinent. Screenin:13 Abuse screen: Denies threats or abuse. Denies injuries from another. Nutritional ss screening: No deficits noted. Tuberculosis screening: No symptoms or risk factors identified. Fall Risk Total Jacob Fall Scale indicates High Risk Score (45 or more points). Fall prevention measures have been instituted. Side Rails Up X 2 Frequent Obs/Assessments Occuring As available patient and family educated on Fall Prevention Program and Strategies. Assessment: 18:12 General: Appears in no apparent distress. slender, unkempt, Behavior is cooperative. sv Pain: Unable to use pain scale. FLACC scale score is 0 out of 10. Neuro: Level of Consciousness is awake, alert, confused, Oriented to none Pt responds to name called. Moves all extremities. Respiratory: Respiratory effort is even, unlabored, Respiratory pattern is regular, symmetrical. Derm: Skin is normal, scab noted to right outer hip. Musculoskeletal: Range of motion: intact in all extremities. 18:30 Reassessment: Pt cleaned of incontinence, linens changed. sv 19:15 General: Appears in no apparent distress. unkempt, Behavior is. Pain: Unable to use tl2 pain scale. FLACC scale score is 0 out of 10. Neuro: Level of Consciousness is awake, alert, confused, Oriented to pt responds when name is called. Respiratory: Airway is patent Respiratory effort is even, unlabored, Respiratory pattern is regular, symmetrical, Breath sounds are clear bilaterally. GI: No signs and/or symptoms were reported involving the gastrointestinal system. : No signs and/or symptoms were reported regarding the genitourinary system. Derm: Skin is pink, warm \T\ dry. 20:45 Reassessment: Patient appears in no apparent distress at this time. Pt was able to tl2 drink Kayexalate with minimal complication. breathing treatment in progress. 21:44 Reassessment: pt stable and ready for transport to floor. tl2 Vital Signs: 17:47 BP 98 / 57; Pulse 73; Resp 21; Temp 98.2(TE); Pulse Ox 97% on R/A; ss 18:43 BP 95 / 61; Pulse 80; Resp 15; Pulse Ox 99% ; sv 19:38 BP 107 / 70; Pulse 78; Resp 15; Pulse Ox 98% on R/A; tl2 21:02 BP 114 / 91; Pulse 86; Resp 16; Pulse Ox 100% on Nebulizer Mask; tl2 ED Course: 17:41 Patient arrived in ED. ss 17:43 Triage completed. ss 17:47 Arm band placed on right wrist. ss 17:59 Pedro Matos MD is Attending Physician. eloina 18:00 color television console monitor on. Pulse ox on. NIBP on. Door closed. Warm blanket given. Head of bed sv elevated. 18:12 Patient has correct armband on for positive identification. Placed in gown. Bed in low ss position. Call light in reach. Side rails up X2. 18:12 Inserted saline lock: 22 gauge in right antecubital area, using aseptic technique. ss Blood collected. 18:20 Salma Vanessa, RN is Primary Nurse. sv 18:21 X-ray(s) taken. sv 18:[address] vm2 18:33 XRAY Chest (1 view) In Process Unspecified. EDMS 18:35 Straight cath inserted, using sterile technique, 16 Fr. Specimen obtained. Returned sv cloudy urine. Patient tolerated poorly. 18:[address] vm2 18:42 Marian Duffy MD is Hospitalizing Provider. [facility] 18:[address] via stretcher. sv 18:43 CT completed. Patient tolerated procedure well. Patient moved back from CT. vm2 18:45 CT Head Brain wo Cont In Process Unspecified. EDMS 18:48 Patient moved back from CT. sv 18:59 Report given to Rocio CONNORS. sv 19:00 Primary Nurse role handed off by Salma Vanessa, DORY sv 19:50 Notified ED physician of a critical lab result(s). pot of 5.7, ast of 587, alt of 379. fc 20:30 Rajan cath inserted, using sterile technique, 16 Fr., by ri, balloon inflated, to ds4 gravity drainage, clamped. returned cloudy urine. Patient tolerated well. 20:55 Ultrasound completed. Patient tolerated well. lc3 21:44 No provider procedures requiring assistance completed. Patient admitted, IV remains in tl2 place. Administered Medications: 18:30 Drug: NS 0.9% 1000 ml Route: IV; Rate: 125 ml/hr; Site: right antecubital; sv 20:01 Not Given (Dr. Noble ordered to cancel- Ammonia level is 25 WNL): Lactulose 30 grams tl2 45 ml PO once 21:00 Drug: Albuterol - atroVENT (3:1) (2.5 mg - 0.5 mg) 3 ml Route: Nebulizer; tl2 21:46 Follow up: Response: No adverse reaction tl2 21:06 Drug: Kayexalate 45 grams Route: PO; tl2 21:46 Follow up: Response: No adverse reaction tl2 Outcome: 18:43 Decision to Hospitalize by Provider. eloina 21:44 Admitted to Tele accompanied by tech, via stretcher, with chart, Report called to tl2 DORY Avila 21:44 Condition: stable 21:44 Instructed on the need for admit. 21:46 Patient left the ED. tl2 Signatures: Dispatcher [employer] Salma Alfred RN RN Pedro Wood MD MD cha Chretien, Felicia, RN RN Yahaira Arreola RN RN Keith Roesnthal ds4 Darion Lopez Taylor, RN RN tl2 Mira Lu [facility]
--- NOTE | 2018-11-05 18:51 | RAD REPORT ---
EXAM DESCRIPTION: CT - Head Brain Wo Cont - 11/05/2018 6:44 pm CLINICAL HISTORY: CONFUSED Drowsiness COMPARISON: No comparisons TECHNIQUE: All CT scans are performed using dose optimization technique as appropriate and may inclu de automated exposure control or mA/KV adjustment according to patient size. FINDINGS: No intracranial hemorrhage, hydrocephalus or extra-axial fluid collection.No areas of brai n edema or evidence of midline shift. The paranasal sinuses and mastoids are clear. The calvarium is intact. IMPRESSION: No acute intracranial abnormality.
[2018-11-05 19:48] LABS: ALT/SGPT 379 U/L (12-78); AST/SGOT 587 U/L (15-37); Albumin 2.4 g/dL (3.4-5.0); Alkaline Phosphatase 220 U/L (45-117); BUN Blood Urea Nitrogen 86 mg/dL (7-18); Bicarbonate 30 mmol/L (21-32); Bilirubin Direct < 0.1 mg/dL (0-0.2); Bilirubin Total 0.2 mg/dL (0.2-1.0); Glucose Level 80 mg/dL (74-106); Magnesium 2.7 mg/dL (1.8-2.4); NT PRO-BNP 146 pg/mL (<125); Protein, Total 8.6 g/dL (6.4-8.2); Sodium Level 152 mmol/L (136-145); Troponin (Emerg Dept Use Only) < 0.02 ng/mL (0.0-0.045)
[2018-11-05 19:51] LABS: Potassium 5.7 mmol/L (3.5-5.1)
[2018-11-05] MEDS ORDERED: ALBUTEROL 2.5 MG/3 ML NEB SOL ONE (20:19)
[2018-11-05] MEDS ORDERED: IPRATROPIUM BROM 0.5MG/2.5ML ONE (20:19)
[2018-11-05 20:27] LABS: Urine Blood 1+ (NEG); Urine Glucose NEGATIVE (NEG); Urine Protein 1+ (NEG); Urine Specific Gravity 1.015 (1.005-1.030); Urine pH 5.5 (5.0-7.0)
[2018-11-05] MEDS ORDERED: SOD POLYSTYREN SUL 15 GM/60 ML UCUP ONE (20:32)
--- NOTE | 2018-11-05 21:08 | RAD REPORT ---
EXAM DESCRIPTION: US - Renal Ultrasound-Complete - 11/05/2018 8:55 pm CLINICAL HISTORY: PAIN COMPARISON: No comparisons FINDINGS: Both kidneys appear mildly echogenic. The right kidney measures 9.6 x 5.6 x 4.6 cm. No hydronephrosis, focal mass or perinephric fluid. The left kidney measures 10.3 x 6.1 x 5.3 cm. No hydronephrosis. Mildly complex cystic lesion is pres ent in the central region of the right kidney measuring 4.4 x 4.3 x 4.2 cm. The urinary bladder is incompletely distended and suboptimally evaluated. IMPRESSION: Mildly complex cystic lesion is identified (4.4 x 4.3 cm) central right kidney. Followup nonemergent MR imaging of the kidneys with contrast would be recommended. Mildly echogenic kidneys suggests mild underlying medical renal disease.
--- NOTE | 2018-11-05 21:22 | P.HP ---
Certification for Inpatient Patient admitted to: Inpatient With expected LOS: >2 Midnights Practitioner: I am a practitioner with admitting privileges, knowledge of patient current condition, hospital course, and medical plan of care. Services: Services provided to patient in accordance with Admission requirements found in Title 42 Section 412.3 of the Code of Federal Regulations Patient History Date of Service: 11/05/18 Reason for admission: acute encephalopathy History of Present Illness: Mr Kaufman is a 47 years old male with history of mental retardation, epilepsy, GERD, who is resident of [facility], who was sent to ED because the patient was more lethargic than usual for the last few days, also they had a lab work and ammonia level was elevated. No reported history of fever or chills, nausea, vomiting or diarrhea. Lab work in ED was remarkable for normal WBC count, creatinine elevated 3.22, hyperkalemia 5.7, hypernatremia 152 and abnormal liver function test. He is afebrile, and his BP is on the lower side 98/57. Allergies No Known Allergies Allergy (Unverified 02/02/15 08:44) Home medications list reviewed: Yes Home Medications: Bisacodyl [Dulcolax*] 1 tab PO M,W,F 02/02/15 Divalproex ER [Depakote *ER] 1,000 mg PO DAILY 02/02/15 Divalproex ER [Depakote *ER] 750 mg PO BID 02/02/15 Esomeprazole Mag Trihydrate [Nexium] 20 mg PO BEDTIME 02/02/15 Gabapentin [Neurontin*] 200 mg PO BEDTIME 02/02/15 Levothyroxine [Synthroid*] 0.075 mg PO DAILY 02/02/15 [place] Carbonate [Lithotabs *] 300 mg PO BID 02/02/15 Multivitamin with Minerals/Lut [Cerovite Senior Tablet] 1 tab PO BID 02/02/15 Niacinamide 200 mg PO TID 02/02/15 Thioridazine HCl 100 mg PO DAILY 02/02/15 Thioridazine HCl 200 mg PO BEDTIME 02/02/15 Zolpidem Tartrate [Ambien Cr] 12.5 mg PO BEDTIME 02/02/15 clonazePAM [Klonopin*] 4 mg PO BEDTIME 02/02/15 - Past Medical/Surgical History -: Mental retardation -: dysphagia -: epilepsy -: thyroiditis Past Surgical History: Reviewed- Non-Contributory - Family History Family History: Reviewed- Non-Contributory - Social History Smoking Status: Never smoker Alcohol use: No CD- Drugs: No Caffeine use: No Place of Residence: Skilled Nursing Review of Systems 10-point ROS is otherwise unremarkable Physical Examination - Physical Exam General: Alert, In no apparent distress HEENT: Atraumatic, PERRLA, Other (dry mucous membranes), EOMI, Sclerae nonicteric Neck: Supple, 2+ carotid pulse no bruit, No LAD, Without JVD or thyroid abnormality Respiratory: Clear to auscultation bilaterally, Normal air movement Cardiovascular: Regular rate/rhythm, Normal S1 S2 Gastrointestinal: Normal bowel sounds, No tenderness Musculoskeletal: No tenderness Integumentary: No rashes Neurological: Normal tone, Sensation intact, Other (he does not communicate, and this is his baseline.) Lymphatics: No axilla or inguinal lymphadenopathy - Studies Laboratory Data (last 24 hrs) 11/05/18 19:05: Sodium 152 H, Potassium 5.7 H*, BUN 86 H, Creatinine 3.22 H, Glucose 80, Magnesium 2.7 H, Total Bilirubin 0.2, AST 587 H*, ALT 379 H*, Alkaline Phosphatase 220 H 11/05/18 18:10: PT 18.1 H, INR 1.53 11/05/18 18:10: WBC 8.1, Hgb 12.5 L, Hct 37.6 L, Plt Count 193 Assessment and Plan - Problems (Diagnosis) (1) Acute encephalopathy Current Visit: Yes Status: Acute (2) Abnormal liver enzymes Current Visit: Yes Status: Acute (3) Acute renal injury Current Visit: Yes Status: Acute (4) Intellectual disability Current Visit: Yes Status: Acute (5) Hyperkalemia Current Visit: Yes Status: Acute (6) Hypernatremia Current Visit: Yes Status: Acute - Plan the patient was admitted to the hospital due to acute encephalopathy, likely multifactorial, including volume depletion leading with acute renal injury and subsequent electrolyte disturbance. Will continue aggressive fluid replacement, order renal ultrasound, consult stamp machine servicer. He already received treatment for hyperkalemia in ED, will check potassium level in 4 hours. - Advance Directives Does patient have a Living Will: No Does patient have a Durable POA for Healthcare: No - Code Status/Comfort Care Code Status Assessed: Yes Code Status: Full Code
[2018-11-05] MEDS ORDERED: NA CHLORIDE 0.9% 1,000 ML IV SCH (21:56)
[2018-11-05] MEDS ORDERED: CALCIUM GLUC 10% INJ 4.65 MEQ in NA CHLORIDE 0.9% 100 ML IV ONE (21:56)
[2018-11-05] MEDS ORDERED: CALCIUM GLUCONATE 1 GM IVPB 1 GM/50 ML BAG IV ONE (23:59)
[2018-11-06] MEDS: NACHLORIDE 0.45% 1,000 ML IV SCH ×4 (00:02→18:25)
[2018-11-06 04:16] LABS: Absolute Lymphocytes (CBC) 0.7 K/uL (0.7-4.9); Absolute Monocytes 0.8 K/uL (0.1-1.3); Absolute Neutrophil 5.7 K/uL (1.8-8.0); Basophils % 0.2 % (0-1.3); Eosinophils % 0.1 % (0-4.4); Hematocrit 35.8 % (39.6-49.0); Lymphocytes % 10.2 % (15.3-44.8); MPV 9.8 fL (7.6-11.3); Monocytes % 10.9 % (3.3-12.3); RBC Red Blood Cell Count 3.85 M/uL (4.33-5.43)
[2018-11-06 05:08] LABS: Albumin 2.4 g/dL (3.4-5.0); Bilirubin Total 0.2 mg/dL (0.2-1.0); Protein, Total 8.3 g/dL (6.4-8.2)
[2018-11-06] MEDS: CEFTRIAXONE/SWI 1gm 1 GM/10 ML SYR IV SCH (08:58)
[2018-11-06] MEDS: ENOXAPARIN 30 MG/0.3 ML SQ SCH (08:58)
[2018-11-06] MEDS ORDERED: ENOXAPARIN 40 MG/0.4 ML SQ SCH (09:00)
[2018-11-06] MEDS ORDERED: CEFTRIAXONE 1 GM/NS 50 ML 1 GM/50 ML BAG IV SCH (09:00)
[2018-11-06] MEDS: D5W 1,000 ML IV SCH (13:18)
--- NOTE | 2018-11-06 13:53 | RAD REPORT ---
EXAM DESCRIPTION: US - Liver Only - 11/06/2018 1:41 pm CLINICAL HISTORY: Abnormal liver function COMPARISON: None. TECHNIQUE: Sonographic evaluation of the right upper quadrant was performed as a dedicated liver ult rasound study. FINDINGS: Liver is 15 cm in maximum dimension. No capsular nodularity or focal liver parenchymal les ion. Liver parenchymal echogenicity is within normal range. No ascites identified. Doppler evaluation shows normal velocity and flow direction of the portal vein. Spleen is 11 cm in maximum dimension. No focal splenic abnormality. Incidental note made of a 4.4 centimeter right renal cyst observed during the course of liver assessm ent. IMPRESSION: Normal size liver showing no suspicious finding.
--- NOTE | 2018-11-06 16:08 | CON ---
Date of Consultation: 11/06/2018 Reason For Consult: Acute renal insufficiency. History Of Present Illness: Mr. Kaufman is a 47-year-old male with past medical history significant for mental retardation, history of seizure disorder, on multiple antipsychotic medications including thioridazine and valproic acid. Presented to [facility] after he was sent in by a [facility] longterm with altered mental status. The patient was found to be more lethargic than usual and they also had lab work and ammonia level that was elevated. The patient was noted to have severe jet al insufficiency with elevated creatinine, elevated LFTs and severe dehydration and hence he was admi tted to the hospital and IV fluids have been started. This morning his creatinine seems to be trendi ng down and LFTs were also slowly trending down. Home Medications: Included Depakote, thioridazine, clonazepam, zolpidem, levothyroxine, lithium 300 mg b.i.d. Past Medical History: Significant for history of mental retardation, dysphagia, epilepsy, thyroiditi s. Past Surgical History: None. Family History: Unable to be obtained. Social History: Lives at a longterm. No history of smoking reported. Review of Systems: Unable to be obtained. Physical Examination: Vital Signs: At this time are showing temperature of 97, pulse rate of 78, respiratory rate of 16, a nd blood pressure 96/55. General: On examination, he appears thin, weak and cachectic. HEENT: Atraumatic head. The patient has dry oral mucosa with secretions noted around his mouth. Lungs: Auscultation of the lungs reveals bilaterally equal air entry. Heart: Auscultation of the heart reveals regular rate and rhythm with mild tachycardia. Extremities: Showed no evidence of edema. Laboratory Data: At this time is showing creatinine of 3.17, improving from 3.2. Potassium improved from 5.7 down to 5. Sodium is still very elevated to 153, BUN of 91, and creatinine of 3.17. LFTs are elevated at 441 and 341 AST and ALT respectively, but improving from before. Albumin was very lo w at 2.4. Urinalysis showed positive nitrites and leukocyte esterase. Cultures are still pending at this time. Valproic level was low. Impression: 1.Acute renal failure secondary to possibly from dehydration. The patient is a poor historian, but the patient has also been on long-term lithium carbonate. We will go ahead and get lithium level als o to make sure that this is not related to any lithium toxicity. Otherwise, we will continue IV flui ds. 2.Multiple electrolyte abnormalities including hypokalemia and hypernatremia. The patient will be c hanged his IV fluids, will be changed to half NS and D5 will be added to improve his electrolyte abno rmalities as well as to correct his dehydration and free water deficit. 3.Hyperkalemia seems to have improved with conservative treatment. 4.Elevated LFTs, likely secondary to shock liver. The patient will possibly need a liver ultrasound also for further evaluation to make sure he does not have anything underlying causing the elevated L FTs. 5.Severe dehydration, IV fluids as discussed above. 6.Complex cystic lesion noted on the right kidney. Recommended for nonemergent MR imaging of the dneys with contrast. Unable to get any MR with contrast at this time. We will continue to monitor. Plan: The patient's renal function is slightly better. We will go ahead and order a lithium level t o make sure that it is not related to lithium toxicity. Continue IV fluids that was changed to half NS and add D5 water to correct his electrolyte abnormalities and free water deficit. Thank you very much for this consultation. Please do not hesitate to call with any questions or conc erns. DARRIN/CRISTIANO Voice ID: [id number] Report ID: [id number]
--- NOTE | 2018-11-06 18:14 | P.PN ---
Subjective Date of Service: 11/06/18 Chief Complaint: acute encephalopathy Subjective: Other (Unsure of baseline, no family at bedside. Patient not able to talk/tell me anything due to underlying MR) Patient seen and examined at bedside. No family at bedside. Chart reviewed and case discussed with nursing staff. Review of Systems 10-point ROS is otherwise unremarkable Physical Examination - Vital Signs Temperature: 99 F Blood Pressure: 101/78 Pulse: 77 Respirations: 16 Pulse Ox (%): 99 - Physical Exam General: In no apparent distress, Confused HEENT: Atraumatic, PERRLA, Other (Dry mucous membrane), EOMI Neck: Supple, JVD not distended Respiratory: Clear to auscultation bilaterally Cardiovascular: Regular rate/rhythm, Normal S1 S2 - Studies Laboratory Data (last 24 hrs) 11/05/18 19:05: Sodium 152 H, Potassium 5.7 H*, BUN 86 H, Creatinine 3.22 H, Glucose 80, Magnesium 2.7 H, Total Bilirubin 0.2, AST 587 H*, ALT 379 H*, Alkaline Phosphatase 220 H 11/05/18 18:10: PT 18.1 H, INR 1.53 11/05/18 18:10: WBC 8.1, Hgb 12.5 L, Hct 37.6 L, Plt Count 193 Assessment And Plan - Plan - Problems (Diagnosis) (1) Acute encephalopathy Current Visit: Yes Status: Acute (2) Abnormal liver enzymes Current Visit: Yes Status: Acute (3) Acute renal injury Current Visit: Yes Status: Acute (4) Intellectual disability Current Visit: Yes Status: Acute (5) Hyperkalemia Current Visit: Yes Status: Acute (6) Hypernatremia Current Visit: Yes Status: Acute - Plan Continue IV fluid replacement. Renal ultrasound ordered, pending Nephrology consulted. Recommendations appreciated DVT prophylaxis: Lovenox GI prophylaxis: Not needed Diet: Regular Disposition: Pending symptomatic improvement
[2018-11-07] MEDS: D5W 1,000 ML IV SCH ×4 (00:20→23:43)
[2018-11-07] MEDS: NACHLORIDE 0.45% 1,000 ML IV SCH ×3 (04:12→13:02)
[2018-11-07 07:44] LABS: Absolute Lymphocytes (CBC) 0.9 K/uL (0.7-4.9); Absolute Monocytes 0.7 K/uL (0.1-1.3); Absolute Neutrophil 4.7 K/uL (1.8-8.0); Basophils % 0.1 % (0-1.3); Eosinophils % 0.2 % (0-4.4); Hematocrit 35.2 % (39.6-49.0); Lymphocytes % 14.5 % (15.3-44.8); MPV 9.5 fL (7.6-11.3); Monocytes % 11.2 % (3.3-12.3); RBC Red Blood Cell Count 3.81 M/uL (4.33-5.43)
[2018-11-07 08:06] LABS: Albumin 2.3 g/dL (3.4-5.0); Bilirubin Total 0.3 mg/dL (0.2-1.0); Potassium 4.2 mmol/L (3.5-5.1); Protein, Total 8.2 g/dL (6.4-8.2)
[2018-11-07] MEDS: ENOXAPARIN 30 MG/0.3 ML SQ SCH (09:36)
[2018-11-07] MEDS: CEFTRIAXONE/SWI 1gm 1 GM/10 ML SYR IV SCH (09:36)
--- NOTE | 2018-11-07 16:38 | PN ---
Date of Progress Note: 11/07/2018 Subjective: The patient was seen and examined. Remains about the same as yesterday. Objective: Vital Signs: Have been reviewed and are stable, blood pressure was running in the 120s t o 100 range. General examination: He appears to be thin and cachectic. HEENT examination: Atraumatic head. Lungs: Clear to auscultation. Abdomen: Soft and nontender. Extremities: Without any evidence of edema. Current Medications: Have been reviewed. He remains on IV fluids with the half NS at 125 cc an hour and D5 water at 75 cc an hour. He is also on Rocephin 1 g daily to treat the urinary tract infectio n. Laboratory Data: Showing sodium improving to 149, potassium of 4.2, chloride of 116, BUN of 25, and creatinine of 1.9, which is improving from 3.1 yesterday. LFTs continue to remain elevated. Liver u ltrasound was normal and the urine culture is showing evidence of Klebsiella pneumoniae, which is sen sitive to Rocephin. Impression: 1.Acute renal insufficiency secondary to dehydration leading to some acute tubular necrosis, current ly improving. 2.Hypernatremia, stable. 3.Hypokalemia, resolved. 4.Elevated liver function tests secondary to shock liver. Continue to monitor. 5.Klebsiella urinary tract infection. Remains on appropriate antibiotics at this time. 6.History of seizure disorder. The patient's lithium and valproic acid levels have been checked and have been certainly not within toxic limits at this time. Plan: 1.The patient is slowly improving. Electrolytes are trending in the right direction. We will deysi nue IV fluids but we will decrease the rate of the half-normal saline and increase D5 water to improv e the hypernatremia further. 2.For elevated liver function tests, we will continue to monitor and may need GI consultation if [place] s not start coming back in the next few days. Continue to hold other anti-seizure medications and fo llow up closely. VV/MODL Voice ID: [id number] Report ID: [id number]
--- NOTE | 2018-11-07 17:44 | P.PN ---
Subjective Date of Service: 11/07/18 Chief Complaint: acute encephalopathy Subjective: No new changes Patient seen and examined at bedside. No family at bedside. Chart reviewed and case discussed with nursing staff. No family at bedside, unsure of any history. Patient unable to verbalize anything due to underlying MR Review of Systems 10-point ROS is otherwise unremarkable Physical Examination - Vital Signs Temperature: 99 F Blood Pressure: 101/78 Pulse: 77 Respirations: 16 Pulse Ox (%): 99 - Physical Exam General: In no apparent distress, Confused HEENT: Atraumatic, PERRLA, Other (Dry mucous membrane), EOMI Neck: Supple, JVD not distended Respiratory: Clear to auscultation bilaterally, Normal air movement Cardiovascular: Regular rate/rhythm, Normal S1 S2 Gastrointestinal: Normal bowel sounds, No tenderness Musculoskeletal: No tenderness Integumentary: No rashes Neurological: Normal speech, Normal tone, Normal affect Lymphatics: No axilla or inguinal lymphadenopathy - Studies Microbiology Data (last 24 hrs): 11/05/18 18:35 Clean Catch Urine [place] Count - Final BETWEEN 10,000 & 100,000 CFU/ML 11/05/18 18:35 Clean Catch Urine - Final Klebsiella Pneumoniae Assessment And Plan - Plan - Problems (Diagnosis) (1) Acute encephalopathy Current Visit: Yes Status: Acute (2) Abnormal liver enzymes Current Visit: Yes Status: Acute (3) Acute renal injury Current Visit: Yes Status: Acute (4) Intellectual disability Current Visit: Yes Status: Acute (5) Hyperkalemia Current Visit: Yes Status: Acute (6) Hypernatremia Current Visit: Yes Status: Acute - Plan Continue IV fluid replacement. Renal ultrasound ordered, pending Nephrology consulted. Recommendations appreciated Unsure of etiology for abnormal liver enzymes, monitor with a.m. labs. Creatinine improving DVT prophylaxis: Lovenox GI prophylaxis: Not needed Diet: Regular Disposition: Pending symptomatic improvement
[2018-11-08] MEDS: NACHLORIDE 0.45% 1,000 ML IV SCH ×2 (01:51→10:16)
[2018-11-08] MEDS: ONDANSETRON 4 MG/2 ML VIAL IV PRN ×2 (05:03→17:50)
[2018-11-08 06:18] LABS: Absolute Monocytes 0.7 K/uL (0.1-1.3); Absolute Neutrophil 3.2 K/uL (1.8-8.0); Basophils % 0.2 % (0-1.3); Eosinophils % 0.9 % (0-4.4); Hematocrit 36.6 % (39.6-49.0); Lymphocytes % 20.8 % (15.3-44.8); MPV 9.2 fL (7.6-11.3); Monocytes % 14.1 % (3.3-12.3); RBC Red Blood Cell Count 3.95 M/uL (4.33-5.43)
[2018-11-08 06:45] LABS: Albumin 2.2 g/dL (3.4-5.0); Bilirubin Total 0.3 mg/dL (0.2-1.0); Potassium 3.6 mmol/L (3.5-5.1); Protein, Total 8.1 g/dL (6.4-8.2)
[2018-11-08] MEDS ORDERED: POTASSIUM 25 MEQ EFFERV TAB PO ONE (09:00)
[2018-11-08] MEDS: ENOXAPARIN 30 MG/0.3 ML SQ SCH (10:16)
[2018-11-08] MEDS: CEFTRIAXONE/SWI 1gm 1 GM/10 ML SYR IV SCH (10:16)
[2018-11-08] MEDS: D5W 1,000 ML IV SCH ×2 (11:08→18:00)
--- NOTE | 2018-11-08 12:29 | P.PN ---
Subjective Date of Service: 11/08/18 Chief Complaint: acute encephalopathy Subjective: No new changes Patient seen and examined at bedside. No family at bedside. Chart reviewed and case discussed with nursing staff. No family at bedside, unsure of any history. Patient unable to verbalize anything due to underlying MR Review of Systems 10-point ROS is otherwise unremarkable Physical Examination - Vital Signs Temperature: 98.2 F Blood Pressure: 93/48 Pulse: 58 Respirations: 20 Pulse Ox (%): 94 - Physical Exam General: Demented HEENT: Sclerae nonicteric Neck: Supple, JVD not distended Respiratory: Clear to auscultation bilaterally, Normal air movement Cardiovascular: Regular rate/rhythm, Normal S1 S2 Gastrointestinal: Normal bowel sounds, No tenderness - Studies Microbiology Data (last 24 hrs): 11/05/18 18:35 Clean Catch Urine [place] Count - Final BETWEEN 10,000 & 100,000 CFU/ML 11/05/18 18:35 Clean Catch Urine - Final Klebsiella Pneumoniae Assessment And Plan - Plan - Problems (Diagnosis) (1) Acute encephalopathy Current Visit: Yes Status: Acute (2) Abnormal liver enzymes Current Visit: Yes Status: Acute Unsure of etiology for abnormal liver enzymes. This could be secondary to medication use. Patient prior to admission has been on multiple medications including Tylenol, niacin, Thorazine (on chart review). Unsure if this is the cause of elevated LFTs but they continued to trend upwards. Acute hepatitis panel, lipase/amylase, coagulation labs ordered. Patient will need GI, we do not have a GI on-call today. Will try and touch base with the GI specialist for further evaluation. (3) Acute renal injury Current Visit: Yes Status: Acute Creatinine at all the electrolytes improving. Nephrology consulted. Recommendations appreciated (4) Intellectual disability Current Visit: Yes Status: Acute (5) Hyperkalemia Current Visit: Yes Status: Acute Resolved (6) Hypernatremia Current Visit: Yes Status: Acute Resolved DVT prophylaxis: Lovenox GI prophylaxis: Not needed Diet: Regular Disposition: Pending symptomatic improvement. Pending further workup on elevated LFTs
[2018-11-08 13:26] LABS: Protime INR 1.33
[2018-11-08] MEDS ORDERED: D5W IV SCH ×2 (14:00→19:00)
[2018-11-08] MEDS ORDERED: ACETYLCYSTEINE IV SCH ×3 (14:00→19:00)
[2018-11-08] MEDS ORDERED: DEXTROSE 5% IV SCH (15:00)
[2018-11-08] MEDS ORDERED: WATER IV SCH (15:00)
--- NOTE | 2018-11-08 22:25 | PN ---
Date of Progress Note: 11/08/2018 NEPHROLOGY PROGRESS NOTE Subjective: Patient is seen at the bedside. The patient is unable to give any history as the patien t is nonverbal. Majority of history is taken from the patient's chart. Objective: Vital Signs: Blood pressure is 93/48, pulse 58, temperature 98.2. General: No acute distress. Awake. Heart: Regular rate and rhythm. No murmurs, rubs, or gallops. Lungs: Clear to auscultation bilaterally. Abdomen: Soft, nontender, nondistended. Positive bowel sounds x4. Extremities: No significant edema. Rajan catheter in place with a large amount of clear yellow urin e. Laboratory Data: CBC reviewed stable. Serum chemistry; sodium 145, potassium 3.6, chloride 109, CO2 29, BUN 36, creatinine 1.57, glucose 115. Hepatic enzymes were continuing to trend upward with the latest AST of 839, ALT of 529, alkaline phosphatase of 279, albumin is 2.2. UA on admission had show n evidence of urinary tract infection. [place] level was less than 0.2. Hepatitis panels are pendin g. Microbiology data, urine is showing evidence of Klebsiella growth. Current Medications: Half NS at 75 mL/h, D5 at 100 mL/h. Patient is receiving acetylcysteine infusi on. Impression: 1.Acute kidney injury, likely in setting of volume depletion. 2.Urinary tract infection. 3.Hypernatremia from dehydration. 4.Acute hepatic insufficiency. 5.Complex renal cyst. Plan: The patient's electrolytes and renal function are improving. We will continue IV fluids at th e current rate. The patient does have evidence of worsening hepatic function and thus the patient brand s been initiated on at this time. In terms of renal function, we will continue to avoid N SAIDs and contrast at this time. Patient's lithium level was low; however, he is on outpatient lithi um. 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 This may have precipitated his electrolyte abnormalities as the patient did have illness and lethargy and was not able to from free water deficit. We will continue IV fluids for the time being and we will continue to follow. SE/MODL Voice ID: [id number] Report ID: [id number]
[2018-11-09] MEDS: NACHLORIDE 0.45% 1,000 ML IV SCH ×3 (04:00→22:37)
[2018-11-09] MEDS: D5W 1,000 ML IV SCH ×3 (04:00→22:37)
[2018-11-09 07:39] LABS: Potassium 4.3 mmol/L (3.5-5.1)
[2018-11-09 07:44] LABS: ALT/SGPT 310 U/L (12-78); AST/SGOT 240 U/L (15-37); Alkaline Phosphatase 228 U/L (45-117); Bilirubin Direct < 0.1 mg/dL (0-0.2); Bilirubin Total 0.2 mg/dL (0.2-1.0); Protein, Total 7.5 g/dL (6.4-8.2)
[2018-11-09] MEDS: clonazePAM 1 MG TAB PO SCH ×2 (14:23→22:19)
[2018-11-09] MEDS: CEFTRIAXONE/SWI 1gm 1 GM/10 ML SYR IV SCH (15:53)
[2018-11-09] MEDS: ENOXAPARIN 30 MG/0.3 ML SQ SCH (15:53)
[2018-11-09] MEDS: THIORIDAZINE PO SCH (18:35)
[2018-11-09] MEDS: NUEDEXTA PO SCH (18:36)
--- NOTE | 2018-11-09 19:06 | P.PN ---
Subjective Date of Service: 11/09/18 Chief Complaint: acute encephalopathy Patient seen and examined at bedside. Mother at bedside. Chart reviewed and case discussed with nursing staff. Patient more agitated today. Review of Systems 10-point ROS is otherwise unremarkable Physical Examination - Vital Signs Temperature: 97.9 F Blood Pressure: 109/61 Pulse: 80 Respirations: 18 Pulse Ox (%): 97 - Physical Exam General: Demented HEENT: Atraumatic, PERRLA, EOMI Neck: Supple, JVD not distended Respiratory: Clear to auscultation bilaterally, Normal air movement Cardiovascular: Regular rate/rhythm, Normal S1 S2 Gastrointestinal: Normal bowel sounds, No tenderness Musculoskeletal: No tenderness Integumentary: No rashes Neurological: Normal speech, Normal tone, Normal affect Lymphatics: No axilla or inguinal lymphadenopathy Assessment And Plan - Plan - Problems (Diagnosis) (1) Acute encephalopathy Current Visit: Yes Status: Acute (2) Abnormal liver enzymes Current Visit: Yes Status: Acute Unsure of etiology for abnormal liver enzymes. This could be secondary to medication use. Patient prior to admission has been on multiple medications including Tylenol, niacin, Thorazine (on chart review). Unsure if this is the cause of elevated LFTs but they continued to trend upwards. Acute hepatitis panel, lipase/amylase, coagulation labs ordered. LFTs trending down today after mucomyst given to patient. Discontinue 3rd dose of mucomyst at this time. (3) Acute renal injury Current Visit: Yes Status: Acute Creatinine and all the electrolytes improving. Nephrology consulted. Recommendations appreciated (4) Intellectual disability Current Visit: Yes Status: Acute (5) Hyperkalemia Current Visit: Yes Status: Acute Resolved (6) Agitation Will restart thioridazine and nuedexta. These were held due to liver damage. Discussed with mother risks of restarting but mother would like it bc patient is agitated without his medications. (6) Hypernatremia Current Visit: Yes Status: Acute Resolved DVT prophylaxis: Lovenox GI prophylaxis: Not needed Diet: Regular Disposition: Pending symptomatic improvement.
[2018-11-09] MEDS: LACTULOSE 20 GM/30 ML UCUP PO SCH (21:00)
[2018-11-10 04:31] LABS: Absolute Lymphocytes (CBC) 1.2 K/uL (0.7-4.9); Absolute Monocytes 0.7 K/uL (0.1-1.3); Absolute Neutrophil 8.1 K/uL (1.8-8.0); Basophils % 0.2 % (0-1.3); Eosinophils % 1.9 % (0-4.4); Hematocrit 32.9 % (39.6-49.0); Lymphocytes % 11.5 % (15.3-44.8); MPV 9.2 fL (7.6-11.3); Monocytes % 6.9 % (3.3-12.3)
[2018-11-10 04:38] LABS: BUN Blood Urea Nitrogen 26 mg/dL (7-18); Bicarbonate 27 mmol/L (21-32); Glucose Level 101 mg/dL (74-106); Magnesium 1.5 mg/dL (1.8-2.4); Potassium 3.8 mmol/L (3.5-5.1); Sodium Level 142 mmol/L (136-145)
[2018-11-10] MEDS: THIORIDAZINE 100 MG PO SCH ×2 (06:39→13:14)
[2018-11-10] MEDS: NACHLORIDE 0.45% 1,000 ML IV SCH ×2 (06:40→20:49)
[2018-11-10] MEDS ORDERED: Magnesium Sulfate 2gm IVPB 2 G/50 ML BAG IV ONE (07:31)
[2018-11-10] MEDS ORDERED: POTASSIUM 25 MEQ EFFERV TAB PO ONE (07:33)
[2018-11-10 08:08] LABS: ALT/SGPT 191 U/L (12-78); AST/SGOT 84 U/L (15-37); Alkaline Phosphatase 233 U/L (45-117); Bilirubin Direct < 0.1 mg/dL (0-0.2); Bilirubin Total 0.2 mg/dL (0.2-1.0); Protein, Total 6.9 g/dL (6.4-8.2)
[2018-11-10] MEDS: ENOXAPARIN 40 MG/0.4 ML SQ SCH (08:42)
[2018-11-10] MEDS: NUEDEXTA PO SCH ×2 (08:42→20:51)
[2018-11-10] MEDS: CEFTRIAXONE/SWI 1gm 1 GM/10 ML SYR IV SCH (08:42)
[2018-11-10] MEDS: clonazePAM 1 MG TAB PO SCH ×3 (08:43→20:51)
[2018-11-10] MEDS: LACTULOSE 20 GM/30 ML UCUP PO SCH ×3 (08:51→21:00)
[2018-11-10] MEDS ORDERED: THIORIDAZINE PO SCH (09:00)
[2018-11-10] MEDS: D5W 1,000 ML IV SCH ×2 (10:00→20:49)
--- NOTE | 2018-11-10 18:55 | P.PN ---
Subjective Date of Service: 11/10/18 Chief Complaint: acute encephalopathy Patient seen and examined at bedside. Mother at bedside. Chart reviewed and case discussed with nursing staff. Patient back to baseline Review of Systems 10-point ROS is otherwise unremarkable Physical Examination - Vital Signs Temperature: 97.3 F Blood Pressure: 123/57 Pulse: 54 Respirations: 18 Pulse Ox (%): 91 - Physical Exam General: In no apparent distress, Demented HEENT: Atraumatic, PERRLA, EOMI Neck: Supple, JVD not distended Respiratory: Clear to auscultation bilaterally, Normal air movement Cardiovascular: Regular rate/rhythm, Normal S1 S2 Gastrointestinal: Normal bowel sounds, No tenderness Musculoskeletal: No tenderness Integumentary: No rashes Neurological: Normal speech, Normal tone, Normal affect Lymphatics: No axilla or inguinal lymphadenopathy Assessment And Plan - Plan - Problems (Diagnosis) (1) Acute encephalopathy Current Visit: Yes Status: Acute (2) Abnormal liver enzymes Current Visit: Yes Status: Acute Unsure of etiology for abnormal liver enzymes. This could be secondary to medication use. Patient prior to admission has been on multiple medications including Tylenol, niacin, Thorazine (on chart review). Unsure if this is the cause of elevated LFTs but they continued to trend upwards. Acute hepatitis panel, lipase/amylase, coagulation labs ordered. LFTs trending down today after mucomyst given to patient. Discontinue 3rd dose of mucomyst at this time. (3) Acute renal injury Current Visit: Yes Status: Acute Creatinine and all the electrolytes improving. Nephrology consulted. Recommendations appreciated (4) Intellectual disability Current Visit: Yes Status: Acute (5) Hyperkalemia Current Visit: Yes Status: Acute Resolved (6) Agitation Will restart thioridazine and nuedexta. These were held due to liver damage. Discussed with mother risks of restarting but mother would like it bc patient is agitated without his medications. (6) Hypernatremia Current Visit: Yes Status: Acute Resolved DVT prophylaxis: Lovenox GI prophylaxis: Not needed Diet: Regular Disposition: Pending symptomatic improvement. Possible discharge back to [facility] tomorrow.
[2018-11-10] MEDS: THIORIDAZINE PO SCH (20:50)
[2018-11-10] MEDS ORDERED: LACTULOSE 20 GM/30 ML UCUP ONE (21:07)
[2018-11-11 04:28] LABS: BUN Blood Urea Nitrogen 15 mg/dL (7-18); Bicarbonate 28 mmol/L (21-32); Glucose Level 97 mg/dL (74-106); Sodium Level 144 mmol/L (136-145)
[2018-11-11] MEDS: D5W 1,000 ML IV SCH (05:19)
[2018-11-11] MEDS: THIORIDAZINE 100 MG PO SCH ×2 (06:18→13:50)
[2018-11-11] MEDS: NUEDEXTA PO SCH (09:12)
[2018-11-11] MEDS: ENOXAPARIN 40 MG/0.4 ML SQ SCH (09:13)
[2018-11-11] MEDS: clonazePAM 1 MG TAB PO SCH ×2 (09:13→13:49)
[2018-11-11] MEDS: CEFTRIAXONE/SWI 1gm 1 GM/10 ML SYR IV SCH (09:13)
[2018-11-11] MEDS: LACTULOSE 20 GM/30 ML UCUP PO SCH ×2 (09:13→13:49)
[2018-11-11] MEDS: NACHLORIDE 0.45% 1,000 ML IV SCH (09:20)
--- NOTE | 2018-11-11 23:01 | P.PN ---
Date of Service: 11/11/18 Vital Signs Temp Pulse Resp BP Pulse Ox 97.3 F 55 13 127/70 96 11/11/18 16:00 11/11/18 16:00 11/11/18 16:00 11/11/18 16:00 11/11/18 16:00 Microbiology Results 11/05/18 18:35 Clean Catch Urine [place] Count - Final BETWEEN 10,000 & 100,000 CFU/ML 11/05/18 18:35 Clean Catch Urine - Final Klebsiella Pneumoniae Assessment/ Plan: Nephrology Limited IH/ ROS due to MR. No acute events overnight. Vitals, medications, blood work and imaging reviewed in the chart. NAD. DMM. Neck supple. CTA. RRR. Soft Abd. No C/C/E. No rash. Awake. No Speech. A/ MARYAN improved. Hypernatremia. Hyperkalemia. Hypomagnesemia. Acute hepatitis. Anemia in chronic illness. Moderate protein malnutrition. Klebsiella cystitis. P/ Continue current POC and Medications other than the changes listed below. AM labs. Daily weight. No NSAIDs. Maintain nutrition and hydration. Agree with abx. Electrolyte replacement as needed. EXAM DESCRIPTION: US - Renal Ultrasound-Complete - 11/05/2018 8:55 pm CLINICAL HISTORY: PAIN COMPARISON: No comparisons FINDINGS: Both kidneys appear mildly echogenic. The right kidney measures 9.6 x 5.6 x 4.6 cm. No hydronephrosis, focal mass or perinephric fluid. The left kidney measures 10.3 x 6.1 x 5.3 cm. No hydronephrosis. Mildly complex cystic lesion is present in the central region of the right kidney measuring 4.4 x 4.3 x 4.2 cm. The urinary bladder is incompletely distended and suboptimally evaluated. IMPRESSION: Mildly complex cystic lesion is identified (4.4 x 4.3 cm) central right kidney. Followup nonemergent MR imaging of the kidneys with contrast would be recommended. Mildly echogenic kidneys suggests mild underlying medical renal disease.
--- NOTE | 2018-11-12 04:08 | DS ---
Date of Discharge: 11/11/2018 Consultants: 1.Tera Castaneda M.D. 2.Maryam Lai M.D., with Nephrology. Admitting Diagnoses: 1.Acute metabolic encephalopathy. 2.Abnormal liver enzymes. 3.Acute kidney injury. 4.Intellectual disability. 5.Hyperkalemia. 6.Hypernatremia. Discharge Diagnoses: 1.Acute metabolic encephalopathy. The patient is back to baseline. 2.Abnormal liver enzymes, improving, may be related to medication use. 3.Acute kidney injury. Creatinine normalized. 4.Intellectual disability. 5.Hyperkalemia, corrected. 6.Acute agitation. 7.Hypernatremia, corrected. 8.Acute cystitis without hematuria. Hospital Course: The patient is a 47-year-old male with history of intellectual disability, epilepsy , GERD, resident of [facility], who was admitted to the hospital due to lethargy for the past few da ys. Workup revealed elevated ammonia level. He had abnormal electrolytes including potassium of 5.7 , sodium of 152, and LFTs were elevated. The patient's creatinine was also elevated. This was all s econdary to prerenal azotemia and dehydration. The patient likely lacks access to free water due to his medical condition. The patient overall did well over the course of the hospital stay. He was st arted on IV fluids. His medications were held. [place] levels were normal. His kidney function ret urned to normal. His potassium and sodium levels were corrected with D5W and D5 half NS. The patien t did fine and was found to have a complex cystic lesion noted on the right kidney, and the patient w ill need an MRI with contrast as an outpatient. The patient's sodium level improved and was correcte d. His magnesium level and potassium level were also corrected. His kidney function normalized. [place] enzymes were trending down and almost normalized. Medications will be reintroduced due to the rosie rapp's medical condition. He requires his Nuedexta and his other psychiatric medications. The carmeliat ent was found to have Klebsiella pneumoniae UTI. The patient was treated with Rocephin and completed treatment during the hospitalization. The patient will not require any further p.o. antibiotics. T he patient was then cleared for discharge from Nephrology standpoint. The patient will have to have his kidney function and lithium levels checked on a routine basis. He will need to have continued fo llowup with followup with Nephrology. The patient was then discharged back to [facility] in a fair condition. Activity: Fall precautions. Diet: Regular. Followup: Follow up with primary care physician in 2 to 3 days. Follow up with director industrial nursing, Dr. Radha jolly, in 2 weeks. Repeat CMP in 1 week. Repeat lithium levels in 1 to 2 weeks. Return to ER for worsening condition. Medications: As per medication reconciliation list. Physical Examination: General: Awake, alert, not oriented. CV: S1, S2. No murmurs. Respiratory: Moving air well bilaterally. No wheezing. Gastrointestinal: Abdomen is soft, nontender, nondistended. Positive bowel sounds. Extremities: No clubbing, cyanosis, or edema. Neurologic: The patient moves all 4 extremities spontaneously. Does open eyes spontaneously. Does make some verbal sounds. No intelligent speech. The patient does not have any understanding to simp le questions. Total time spent discharging the patient was 37 minutes. PARMINDER Voice ID: [id number] Report ID: [id number]
[2018-11-12 04:19] LABS: HBsAG Nonreactive (Nonreactive); Hepatitis A IgM Antibody Nonreactive
[2018-11-12 16:58] LABS: HIV 1/2 Antibody Diff Not indicated.; HIV AG/AB 4TH GEN Non-reactive (Non-reactive)
[2018-11-12 21:52] LABS: Hep C Virus RNA (PCR)log <1.18 log IU/mL
== END 2018-11-11 16:45 | DRG 70 ==
LOC: ER 17:39 → ERHOLD 20:01 → 4TH 21:29
PROVIDERS: ADMIT Internal Medicine; ATTEND Family Medicine
DX: G93.41 Metabolic encephalopathy (principal); K72.00 Acute and subacute hepatic failure without coma; N17.0 Acute kidney failure with tubular necrosis; N30.00 Acute cystitis without hematuria; E87.0 Hyperosmolality and hypernatremia; B17.9 Acute viral hepatitis, unspecified; E44.0 Moderate protein-calorie malnutrition; I10 Essential (primary) hypertension; G40.909 Epilepsy, unspecified, not intractable, without status epilepticus; F79 Unspecified intellectual disabilities; K21.9 Gastro-esophageal reflux disease without esophagitis; E87.5 Hyperkalemia; R94.5 Abnormal results of liver function studies; E86.0 Dehydration; N28.1 Cyst of kidney, acquired; B96.1 Klebsiella pneumoniae [K. pneumoniae] as the cause of diseases classified elsewhere; E87.6 Hypokalemia; R45.1 Restlessness and agitation; E83.42 Hypomagnesemia; D63.8 Anemia in other chronic diseases classified elsewhere
CPT/HCPCS: 36415; 51702; 70450; 71045; 76705; 76770; 80048; 80053; 80074; 80076; 80164; 80178; 80329; 81003; 82140; 82962; 83735; 83880; 84132; 84484; 85025; 85610; 86644; 87077; 87086; 87088; 87186; 87389; 87522; 94640; 99285; J0132; J0610; J0696; J1650; J2405; J3475; J7030; J7060